=== PATIENT | male | born 1955 | race Two or more races ===

== ENCOUNTER → 2017-04-17 | Outpatient (CLI) | payer MEDICARE ==
--- NOTE | 2017-04-18 12:12 | XCELERA REPORT ---
[address] [address] Transthoracic Echocardiogram Report Name: MANAN IGLESIAS Age: 61 yrs Gender: Male : 1955 Patient Status: Outpatient Patient Location: Study Date: 04/17/2017 01:01 PM Height: 67 in Weight: 153 lb BSA: 1.8 m2 Procedure: A complete two-dimensional transthoracic echocardiogram was performed (2D, M-mode, spectral and color flow Doppler). The study was technically adequate with some images being suboptimal in quality. Reason For Study: CARDIOMYOPATHY Ordering Physician: TINY QUINTERO Performed By: Henrietta Khan Interpretation Summary The left ventricular ejection fraction is normal. There is borderline concentric left ventricular hypertrophy. LV diastolic function could not be adequately assessed. The left ventricle is grossly normal size. Wall motion cannot be accurately commented on, but no definite regional wall motion abnormalities noted. The right ventricle is mildly dilated. The right ventricular systolic function is normal. The right atrium is normal in size The left atrial size is normal. There is a trace amount of mitral regurgitation There is no mitral valve stenosis. There is no aortic valve stenosis No aortic regurgitation is present. There is a trace to mild amount of tricuspid regurgitation There is mild pulmonary hypertension by echo Right ventricular systolic pressure is estimated to be elevated at 40- 50mmHg. The aortic root is not well visualized but is probably normal size. The inferior vena cava appeared normal and decreased > 50% with respiration (RAP 5-10 mmHg) There is no pericardial effusion. MMode/2D Measurements & Calculations RVDd: 3.2 cm LVIDd: 4.8 cm FS: 32.8 % Ao root diam: 2.8 cm IVSd: 0.93 cm LVIDs: 3.2 cm EDV(Teich): 105.9 ml LVPWd: 0.95 cm ESV(Teich): 41.1 ml Ao root area: 6.1 cm2 EF(Teich): 61.2 % Doppler Measurements & Calculations MV E max bria: MV dec slope: Ao V2 max: LV V1 max P.9 cm/sec 122.0 cm/sec 3.2 mmHg MV A max bria: 405.1 cm/sec2 Ao max PG: LV V1 max: 52.5 cm/sec MV dec time: 5.9 mmHg 89.9 cm/sec MV E/A: 1.3 0.17 sec PA V2 max: TR max bria: 82.0 cm/sec 271.8 cm/sec PA max PG: TR max P.4 mmHg 2.7 mmHg Left Ventricle The left ventricle is grossly normal size. There is borderline concentric left ventricular hypertrophy. The left ventricular ejection fraction is normal. LV diastolic function could not be adequately assessed. Wall motion cannot be accurately commented on, but no definite regional wall motion abnormalities noted. Right Ventricle The right ventricle is mildly dilated. There is normal right ventricular wall thickness. The right ventricular systolic function is normal. Atria The right atrium is normal in size. The left atrial size is normal. Interarterial septum not well visualized and not well dopplered. Cannot comment on ASD/PFO presence. Mitral Valve The mitral valve is grossly normal. There is no mitral valve stenosis. There is a trace amount of mitral regurgitation. Aortic Valve The aortic valve is not well visualized secondary to technical limitations. There is no aortic valve stenosis. No aortic regurgitation is present. Tricuspid Valve The tricuspid valve is not well visualized, but is grossly normal. There is no tricuspid stenosis. There is a trace to mild amount of tricuspid regurgitation. There is mild pulmonary hypertension by echo. Right ventricular systolic pressure is estimated to be elevated at 40-50mmHg. Pulmonic Valve The pulmonic valve is not well visualized. Great Vessels The aortic root is not well visualized but is probably normal size. The inferior vena cava appeared normal and decreased > 50% with respiration (RAP 5-10 mmHg). Effusions There is no pericardial effusion. : TINY QUINTERO > Caryn Kelly
== END ==
LOC: SP 12:26
PROVIDERS: ATTEND Family Medicine Geriatric Medicine
DX: I10 Essential (primary) hypertension (principal); E10.59 Type 1 diabetes mellitus with other circulatory complications; F17.200 Nicotine dependence, unspecified, uncomplicated; I42.9 Cardiomyopathy, unspecified
CPT/HCPCS: 93306

== ENCOUNTER → 2017-07-23 | Outpatient (CLI) | payer MEDICARE ==
[2017-07-23 10:10] LABS: ABSOLUTE BASOPHILS # (AUTO) 0.1 10^3/uL (0.0-0.2); ABSOLUTE EOSINOPHILS # (AUTO) 0.3 10^3/uL (0.0-0.6); ABSOLUTE LYMPHOCYTES (AUTO) 2.3 10^3/uL (0.5-4.7); ABSOLUTE MONOCYTES (AUTO) 0.9 10^3/uL (0.1-1.4); ABSOLUTE NEUT (AUTO) 3.7 10^3/uL (1.7-8.2); BASOPHILS % (AUTO) 0.9 % (0-2); EOSINOPHILS % (AUTO) 3.6 % (0-6); HEMATOCRIT 41.3 % (37.9-51.0); LYMPHOCYTES % (AUTO) 31.7 % (13-45); MEAN CORPUSCULAR HEMOGLOBIN 32.4 pg (27.0-33.4); MEAN CORPUSCULAR HGB CONC 33.9 g/dL (32.0-36.0); MEAN CORPUSCULAR VOLUME 96 fl (80-97); MONOCYTES % (AUTO) 12.7 % (3-13); PLATELET COUNT 150 10^3/uL (150-450); RED BLOOD COUNT 4.32 10^6/uL (4.35-5.55); RED CELL DISTRIBUTION WIDTH 14.8 % (11.5-14.0); SEGMENTED NEUTROPHILS % (AUTO) 51.1 % (42-78); TOTAL CELLS COUNTED % (AUTO) 100 %; WHITE BLOOD COUNT 7.2 10^3/uL (4.0-10.5)
[2017-07-23 10:46] LABS: ALANINE AMINOTRANSFERASE 27 U/L (21-72); ALBUMIN 3.9 g/dL (3.5-5.0); ALKALINE PHOSPHATASE 58 U/L (38-126); ANION GAP 7 (5-19); ASPARTATE AMINO TRANSFERASE 27 U/L (17-59); BILIRUBIN,DIRECT 0.4 mg/dL (0.0-0.4); BILIRUBIN,TOTAL 0.4 mg/dL (0.2-1.3); BLOOD UREA NITROGEN 11 mg/dL (7-20); CALCIUM 9.2 mg/dL (8.4-10.2); CARBON DIOXIDE 33 mmol/L (22-30); CHLORIDE 104 mmol/L (98-107); CHOLESTEROL 137.97 mg/dL (0-200); GLUCOSE 93 mg/dL (75-110); POTASSIUM 4.3 mmol/L (3.6-5.0); SODIUM 143.9 mmol/L (137-145); TOTAL PROTEIN 6.6 g/dL (6.3-8.2); TRIGLYCERIDES 72 mg/dL (<150)
[2017-07-23 10:58] LABS: DIRECT LDL 61 mg/dL (<100)
== END ==
LOC: LAB 09:06
PROVIDERS: ATTEND Family Medicine Geriatric Medicine
DX: E78.5 Hyperlipidemia, unspecified (principal); I10 Essential (primary) hypertension; N40.0 Benign prostatic hyperplasia without lower urinary tract symptoms; Z79.899 Other long term (current) drug therapy
CPT/HCPCS: 36415; 80053; 80061; 84153; 84443; 85025

== ENCOUNTER 2018-02-13 06:05 | Emergency (ER) | payer MEDICARE ==
[2018-02-13] MEDS ORDERED: SILVER NITRATE APPLICATOR 1 APPLIC STICK..EA. 10/PACKAGE TOP ONE (06:55)
--- NOTE | 2018-02-13 07:48 | ER Document Report ---
ED General - General Chief Complaint: Nose Bleed Stated Complaint: NOSE BLEED Time Seen by Provider: 02/13/18 06:29 Notes: Patient is a 62-year-old male that presents to the emergency department for chief complaint of nosebleed. Patient states that last night around 8:30 PM, he had bleeding from his left nostril, he held pressure, and it did stop at that time, he woke up this morning again though and around 6 AM he started bleeding from his left nostril again, he placed some tissues, and it would not stop at home, is felt drainage down the back of his throat, so he decided to come to the emergency department. He does take aspirin, but no other blood thinners. No injuries to his nose. Denies having any lightheadedness, dizziness, headache, chest pain, recent fevers, chills or night sweats. Past Medical History: COPD, hypertension, GERD Past Surgical History: Total knee arthroplasty Social History: Denies tobacco, alcohol or drug use. Family History: Reviewed and noncontributory for presenting illness Allergies: Reviewed, see documented allergy list. REVIEW OF SYSTEMS: Other than noted above, the 12 point review of systems was reviewed with the patient and were negative, all pertinent findings are included in the HPI. PHYSICAL EXAMINATION: Vital signs reviewed, nursing noted reviewed. GENERAL: Well-appearing, well-nourished and in no acute distress. HEAD: Atraumatic, normocephalic. EYES: Eyes appear normal, sclera anicteric, conjunctiva are normal. ENT: Moist mucous membranes. Dried blood noted both nares, on the left nasal septum, there is an exposed vessel, not actively bleeding, the posterior pharynx appears unremarkable, no active bleeding at this time, after nasal packing. NECK: Normal range of motion, supple without lymphadenopathy LUNGS: Breath sounds clear to auscultation bilaterally and equal. No wheezes rales or rhonchi. HEART: Regular rate and rhythm without murmurs EXTREMITIES: Nontender, good range of motion, no pitting or edema. NEUROLOGICAL: No focal neurological deficits. Moves all extremities spontaneously Motor and sensory grossly intact on exam. PSYCH: Normal mood, normal affect. SKIN: Warm, Dry, normal turgor, no rashes or lesions noted on exposed skin TRAVEL OUTSIDE OF THE [place] IN LAST 30 DAYS: No - Related Data Allergies/Adverse Reactions: No Known Drug Allergies Allergy (Verified 02/13/18 06:06) Past Medical History - Social History Smoking Status: Current Every Day Smoker Chew tobacco use (# tins/day): No Frequency of alcohol use: None Drug Abuse: None Family History: Reviewed & Not Pertinent Patient has suicidal ideation: No Patient has homicidal ideation: No - Past Medical History Cardiac Medical History: Reports: Hx Hypertension Pulmonary Medical History: Reports: Hx COPD Renal/ Medical History: Denies: Hx Peritoneal Dialysis Past Surgical History: Reports: Hx Orthopedic Surgery - R knee replacement Physical Exam - Vital signs Vitals: Temp Pulse Resp BP Pulse Ox 98.1 F 77 20 141/78 H 98 02/13/18 06:09 02/13/18 06:09 02/13/18 06:09 02/13/18 06:09 02/13/18 06:09 Course - Re-evaluation Re-evalutation: Patient seen and examined, vital signs reviewed, packing was removed from the patient's nose, had a blow out his nose, he did not have any further bleeding, he did have an exposed vessel on his left nasal septum however, and I felt that this would likely rebleed if the patient was just discharged home, therefore using silver nitrate cautery, this was applied to the left nasal septum, with good hemostasis, no further or active bleeding. Patient was feeling well, he was monitored, no active bleeding or further bleeding. He is advised to use Vaseline or saline gel, gently, to help moisturize his nose. Patient was agreeable to this plan of care and discharged home. - Vital Signs Vital signs: Temp Pulse Resp BP Pulse Ox 98.3 F 67 18 133/79 H 96 02/13/18 08:01 02/13/18 08:01 02/13/18 08:01 02/13/18 08:01 02/13/18 08:01 Discharge - Discharge Clinical Impression: Epistaxis Condition: Stable Disposition: HOME, SELF-CARE Instructions: Nosebleed Instructions ([facility]) Additional Instructions: Please follow-up with your primary care physician, or ear nose and throat doctor, keep your nose moist, you could use Vaseline, or with Forrest gel, that can be purchased [id number]. You should do this at least twice a day. Apply it to the outside portion of your nostril, and then gently pinch your Forms: Return to Work Referrals: TINY QUINTERO MD [Primary Care Provider] - Follow up in 3-5 days
[2018-02-13 08:03] VITALS: BP 133/79
== END 2018-02-13 08:02 | disposition home or self-care (01) ==
LOC: ER 06:05
DX: R04.0 Epistaxis (principal); F17.200 Nicotine dependence, unspecified, uncomplicated; J44.9 Chronic obstructive pulmonary disease, unspecified; I10 Essential (primary) hypertension; K21.9 Gastro-esophageal reflux disease without esophagitis; Z96.651 Presence of right artificial knee joint
CPT/HCPCS: 99283

== ENCOUNTER → 2018-06-18 | Outpatient (CLI) | payer MEDICARE ==
[2018-06-18 09:47] LABS: ABSOLUTE BASOPHILS # (AUTO) 0.1 10^3/uL (0.0-0.2); ABSOLUTE EOSINOPHILS # (AUTO) 0.4 10^3/uL (0.0-0.6); ABSOLUTE LYMPHOCYTES (AUTO) 2.1 10^3/uL (0.5-4.7); ABSOLUTE MONOCYTES (AUTO) 1.2 10^3/uL (0.1-1.4); ABSOLUTE NEUT (AUTO) 6.7 10^3/uL (1.7-8.2); BASOPHILS % (AUTO) 0.8 % (0-2); EOSINOPHILS % (AUTO) 3.7 % (0-6); HEMATOCRIT 42.7 % (37.9-51.0); HEMOGLOBIN 14.2 g/dL (13.5-17.0); LYMPHOCYTES % (AUTO) 19.8 % (13-45); MEAN CORPUSCULAR HEMOGLOBIN 31.6 pg (27.0-33.4); MEAN CORPUSCULAR HGB CONC 33.2 g/dL (32.0-36.0); MEAN CORPUSCULAR VOLUME 95 fl (80-97); MONOCYTES % (AUTO) 11.8 % (3-13); PLATELET COUNT 200 10^3/uL (150-450); SEGMENTED NEUTROPHILS % (AUTO) 63.9 % (42-78); TOTAL CELLS COUNTED % (AUTO) 100 %; WHITE BLOOD COUNT 10.5 10^3/uL (4.0-10.5)
[2018-06-18 10:36] LABS: ALANINE AMINOTRANSFERASE 29 U/L (21-72); ANION GAP 8 (5-19); BLOOD UREA NITROGEN 14 mg/dL (7-20); CALCIUM 8.9 mg/dL (8.4-10.2); CARBON DIOXIDE 33 mmol/L (22-30); CHLORIDE 102 mmol/L (98-107); CHOLESTEROL 112.49 mg/dL (0-200); GLUCOSE 92 mg/dL (75-110); POTASSIUM 4.6 mmol/L (3.6-5.0); SODIUM 143.4 mmol/L (137-145); TRIGLYCERIDES 71 mg/dL (<150)
[2018-06-18 10:47] LABS: DIRECT LDL 62 mg/dL (<100)
== END ==
LOC: LAB 09:08
PROVIDERS: ATTEND Family Medicine Geriatric Medicine
DX: N40.1 Benign prostatic hyperplasia with lower urinary tract symptoms (principal); E78.5 Hyperlipidemia, unspecified; I10 Essential (primary) hypertension; Z79.899 Other long term (current) drug therapy
CPT/HCPCS: 36415; 80048; 80061; 84153; 84443; 84460; 85025

== ENCOUNTER → 2019-01-12 | Outpatient (CLI) | payer MEDICARE ==
--- NOTE | 2019-01-12 11:18 | RADIOLOGY REPORT (SQ) ---
EXAM DESCRIPTION: CHEST 2 VIEWS COMPLETED DATE/TIME: 01/12/2019 10:56 am REASON FOR STUDY: J20.9 ACUTE BRONCHITIS, UNSPECIFIED, J44.9 CHRONIC OBSTRUCTIVE PULMONARY DI COMPARISON: None. EXAM PARAMETERS: NUMBER OF VIEWS: two views TECHNIQUE: Digital Frontal and Lateral radiographic views of the chest acquired. RADIATION DOSE: NA LIMITATIONS: none FINDINGS: LUNGS AND PLEURA: Ill-defined opacities within the right mid lung. Additional 8 mm jennifer te opacity within the left mid lung. Blunting of the bilateral costophrenic angles, possibly small e ffusions versus pleural thickening. Increased AP diameter with emphysematous interstitial changes. No pneumothorax. MEDIASTINUM AND HILAR STRUCTURES: No masses or contour abnormalities. HEART AND VASCULAR STRUCTURES: Heart normal size. No evidence for failure. BONES: No acute findings. HARDWARE: Surgical clips overlie right lung base. OTHER: No other significant finding. IMPRESSION: 1. Patchy opacities within the right mid lung, possibly infectious/inflammatory. Trace effusions versus pleural thickening. 2. 8 mm nodular opacity in the left mid lung possibly also infectious/ inflammatory although underlyi ng lung nodule is not excluded. Recommend follow-up to resolution or nonemergent chest CT for furthe r characterization. 3. Emphysematous change. TECHNICAL DOCUMENTATION: JOB ID: [id number] [employer]- All Rights Reserved Reading location - IP/workstation name: [email or web address]
== END ==
LOC: RAD 10:33
PROVIDERS: ATTEND Family Medicine Geriatric Medicine
DX: J20.9 Acute bronchitis, unspecified (principal); J44.0 Chronic obstructive pulmonary disease with (acute) lower respiratory infection
CPT/HCPCS: 71046

== ENCOUNTER → 2019-02-13 | Outpatient (CLI) | payer MEDICARE ==
--- NOTE | 2019-02-13 09:53 | RADIOLOGY REPORT (SQ) ---
EXAM DESCRIPTION: CT CHEST WITHOUT COMPLETED DATE/TIME: 02/13/2019 7:21 am REASON FOR STUDY: PULMONARY NODULE (R91.1), PNEUMONIA (J18.9) J18.9 PNEUMONIA, UNSPECIFIED ORGANISM R91.1 SOLITARY PULMONARY NODULE COMPARISON: None. TECHNIQUE: CT scan performed of the chest without intravenous contrast. Images reviewed with lung, soft tissue and bone windows. Reconstructed coronal and sagittal MPR images reviewed. All images st ored on PACS. All CT scanners at this facility use dose modulation, iterative reconstruction, and/or weight based d osing when appropriate to reduce radiation dose to as low as reasonably achievable (ALARA). [facility]: Dose Right [facility]: CareDose [facility]: Dose Right [facility]: Teradose 4D [facility]: [employer] RADIATION DOSE: CT Rad equipment meets quality standard of care and radiation dose reduction techniq ues were employed. CTDIvol: 4.8 mGy. DLP: 199 mGy-cm. mGy. LIMITATIONS: No technical limitations. FINDINGS: LUNGS AND PLEURA: Severe upper lobe predominant panacinar are and paraseptal emphysema. T here are multiple bilateral nodular opacities. For reference the there is a left lower lobe spiculat ed nodule measuring 8.6 mm (series 4, image 64). There are multiple irregular areas of nodular conso lidation within the right lung. For reference there is a nodular area of consolidation within the ri ght lower lobe measuring approximately 16 mm (series 4, image 61). There is an additional area of ir regular pleural thickening and nodularity along the minor fissure without discrete nodule identified (series 4, image 51). There is a small 6 mm nodular opacity abutting the right upper lobe airway (se jose a 4, image 45). No significant pleural effusion. No pneumothorax. No discrete airspace disease. HILAR AND MEDIASTINAL STRUCTURES: No identified masses or abnormal nodes. No obvious aneurysm. HEART AND VASCULAR STRUCTURES: No aneurysm. No pericardial effusion. UPPER ABDOMEN: No significant findings. Limited exam. THYROID AND OTHER SOFT TISSUES: No masses. No adenopathy. BONES: No acute bony abnormality. No suspicious lytic or blastic osseous lesions. HARDWARE: 2 punctate metallic densities along the right posterior hemithorax between the 10th and 11t h ribs, etiology uncertain. OTHER: No other significant findings. IMPRESSION: 1. Multiple bilateral nodular opacities as above. Most concerning nodules are a left l ower lobe spiculated nodule measuring 8.6 mm and a right lower lobe 16 mm irregular nodule. Follow-u p recommendations as below. 2. Severe emphysema with additional areas of parenchymal change, likely scarring. 3. No lymphadenopathy. No other evidence of acute intrathoracic process. COMMENT: F[place]ISCHNER CRITERIA FOR FOLLOW-UP OF PULMONARY NODULES Incidentally detected new nodules in persons 35 or older. HIGH RISK: History of smoking or other known risk factors. >8 mm single solid nodule: LOW and HIGH RISK: consider CT, PET/CT or biopsy at 3 mo. TECHNICAL DOCUMENTATION: JOB ID: [id number] Quality ID # [id number]: Final reports with documentation of one or more dose reduction techniques (e.g., Au tomated exposure control, adjustment of the mA and/or kV according to patient size, use of iterative reconstruction technique) 2010 [employer]- All Rights Reserved Reading location - IP/workstation name: [email or web address]
== END ==
LOC: RAD 06:47
PROVIDERS: ATTEND Family Medicine Geriatric Medicine
DX: J18.9 Pneumonia, unspecified organism (principal); R91.1 Solitary pulmonary nodule; J43.9 Emphysema, unspecified
CPT/HCPCS: 71250

== ENCOUNTER → 2019-02-24 | Outpatient (CLI) | payer MEDICARE ==
--- NOTE | 2019-02-25 13:44 | RADIOLOGY REPORT (SQ) ---
EXAM DESCRIPTION: PET CT SKULL/THIGH COMPLETED DATE/TIME: 02/24/2019 8:05 pm REASON FOR STUDY: D49.1 NEOPLASM OF UNSPECIFIED BEHAVIOR OF RESPIRATORY SYSTEM D49.1 NEOPLASM OF UN SPECIFIED BEHAVIOR OF RESPIRATORY SYSTEM COMPARISON: CT of the chest without contrast from 02/13/2019. RADIONUCLIDE AND DOSE: 7.98 mCi F18 FDG The route of agent administration: Intravenous FASTING BLOOD SUGAR: 88 mg/dl CONTRAST TYPE AND DOSE: No CT contrast given. TECHNIQUE: Blood glucose level was verified. Above dose of FDG was injected intravenously. 2-D seg mented attenuation correction images were obtained from the base of the skull to the midthighs. Nonc ontrast CT images were obtained for attenuation correction and fusion with emission images. CT image s were performed without oral or intravenous contrast and are not sensitive for parenchymal lesions. A series of overlapping emission PET images were obtained. Images reviewed and manipulated at [facility] work station by the radiologist. Images stored on PACS. LIMITATIONS: None. FINDINGS: HEAD AND NECK: No areas of abnormal metabolic activity in the soft tissues of the head and neck. CHEST: There is moderate to severe centrilobular and paraseptal emphysema. The maximum SUV of the 15 x 9 mm nodular opacity with spiculated margins in the superior segment of t he right lower lobe (image 79 of series 3) is 2.4; the maximum SUV of the 9 mm nodular opacity in the superior segment of the left lower lobe (image 79 of series 3) is 2; and maximum SUV of the 6 mm nod ular opacity in the right upper lobe (image 68 of series 3) the is 1.3. There is a new ill-defined ground-glass nodular opacity in the posterior aspect of the left lower lob e (image 91 of series 3) that demonstrates minimal FDG uptake with a maximum SUV of 1.9. There is no hypermetabolic thoracic adenopathy. ABDOMEN AND PELVIS: The liver demonstrates heterogeneous non focal FDG uptake with an average SUV of 2.1. There is expected physiologic uptake throughout the gastrointestinal and genitourinary tracts. No areas of abnormal metabolic activity are identified in the abdomen or pelvis PROXIMAL LOWER EXTREMITIES: No areas of abnormal metabolic activity in the soft tissues of the lower extremities. BONES: No areas of abnormal metabolic activity in the imaged axial and appendicular skeleton. ADDITIONAL CT FINDINGS: Mild bilateral gynecomastia. The heart is enlarged. There is no pericardial effusion. There is a linear hyperdense line that tracks along the posteromedial pleural surface of the right hemithorax down to hilum (images 09/12/1950 82 of series 3) - correlate for prior wedge resec tion. There is no enlarged mediastinal adenopathy. Evaluation of the jon for adenopathy is limited due to the absence of intravenous contrast. There is no abnormality of the liver, spleen, pancreas, a drenal glands or kidneys that is apparent on a limited unenhanced CT. The gallbladder is present. T he abdominal aorta is normal in caliber. There is no retroperitoneal adenopathy, hemorrhage or mass. There is colonic diverticulosis without diverticulitis and a fat containing indirect left inguinal hernia. OTHER: No other findings. IMPRESSION: 1. The nodular opacities described on the CT from 03/05/2019 demonstrate minimal FDG upta ke with maximum SUVs that range from 1.3 to 2.4. The intensity of the FDG uptake is greater than shmuel t of the mediastinal blood pool and less than that of the liver parenchyma. These nodules are indete rminate on PET and continued short-term CT follow-up is recommended. 2. New ill-defined nodular ground-glass opacity in the posterior aspect of the left lower lobe (imag e 91 of series 3) that demonstrates minimal FDG uptake. The opacity could be infectious or inflammat ory in etiology. TECHNICAL DOCUMENTATION: JOB ID: [id number] [employer]- All Rights Reserved Reading location - IP/workstation name: [email or web address]
== END ==
LOC: RAD 10:38
PROVIDERS: ATTEND Family Medicine Geriatric Medicine
DX: R91.8 Other nonspecific abnormal finding of lung field (principal); J43.2 Centrilobular emphysema
CPT/HCPCS: 78815; A9552

== ENCOUNTER 2019-05-24 10:48 | Emergency (ER) | payer MEDICARE ==
[2019-05-24 11:30] LABS: ABSOLUTE BASOPHILS # (AUTO) 0.1 10^3/uL (0.0-0.2); ABSOLUTE EOSINOPHILS # (AUTO) 0.2 10^3/uL (0.0-0.6); ABSOLUTE MONOCYTES (AUTO) 1.2 10^3/uL (0.1-1.4); ABSOLUTE NEUT (AUTO) 9.4 10^3/uL (1.7-8.2); BASOPHILS % (AUTO) 0.5 % (0-2); EOSINOPHILS % (AUTO) 1.6 % (0-6); HEMATOCRIT 38.7 % (37.9-51.0); HEMOGLOBIN 13.2 g/dL (13.5-17.0); LYMPHOCYTES % (AUTO) 15.4 % (13-45); MEAN CORPUSCULAR HEMOGLOBIN 32.1 pg (27.0-33.4); MEAN CORPUSCULAR HGB CONC 34.1 g/dL (32.0-36.0); MEAN CORPUSCULAR VOLUME 94 fl (80-97); MONOCYTES % (AUTO) 9.4 % (3-13); PLATELET COUNT 462 10^3/uL (150-450); RED BLOOD COUNT 4.11 10^6/uL (4.35-5.55); RED CELL DISTRIBUTION WIDTH 15.6 % (11.5-14.0); SEGMENTED NEUTROPHILS % (AUTO) 73.1 % (42-78); TOTAL CELLS COUNTED % (AUTO) 100 %; WHITE BLOOD COUNT 12.8 10^3/uL (4.0-10.5)
[2019-05-24 11:36] LABS: APPEARANCE,URINE SLIGHTLY-CLOUDY; BILIRUBIN,URINE NEGATIVE (NEGATIVE); COLOR,URINE AMBER; GLUCOSE, URINE NEGATIVE (NEGATIVE); KETONES,URINE NEGATIVE (NEGATIVE); LEUKOCYTE ESTERASE,URINE NEGATIVE (NEGATIVE); NITRITE,URINE NEGATIVE (NEGATIVE); PROTEIN,URINE NEGATIVE (NEGATIVE); URINE SPECIFIC GRAVITY 1.016; UROBILINOGEN,URINE NEGATIVE mg/dL (<2.0)
[2019-05-24 11:42] LABS: ALBUMIN 3.7 g/dL (3.5-5.0); ALKALINE PHOSPHATASE 89 U/L (38-126); ANION GAP 5 (5-19); ASPARTATE AMINO TRANSFERASE 36 U/L (17-59); BILIRUBIN,DIRECT 0.3 mg/dL (0.0-0.4); BILIRUBIN,TOTAL 0.3 mg/dL (0.2-1.3); BLOOD UREA NITROGEN 16 mg/dL (7-20); CALCIUM 8.8 mg/dL (8.4-10.2); CARBON DIOXIDE 32 mmol/L (22-30); CHLORIDE 99 mmol/L (98-107); GLUCOSE 109 mg/dL (75-110); POTASSIUM 4.6 mmol/L (3.6-5.0); TOTAL PROTEIN 6.9 g/dL (6.3-8.2)
[2019-05-24] MEDS ORDERED: FENTANYL CITRATE INJ/PF 100 MCG/2 ML AMPUL IV ONE ×2 (12:00→15:09)
--- NOTE | 2019-05-24 12:03 | ER Document Report ---
ED GI/ - General Chief Complaint: Abdominal Pain Stated Complaint: ABDOMINAL PAIN Time Seen by Provider: 05/24/19 11:30 Primary Care Provider: TINY QUINTERO MD [COMMUNITY BASED STAFF] - Follow up tomorrow MANAN HERMAN MD [Primary Care Provider] - Follow up as needed Notes: Patient states that he coughed around 2:00 this morning and had a sudden sharp abdominal pain to the right lower quadrant. Patient complains of persistent sharp pain to the right lower quadrant. Patient denies any fever, nausea vomiting or diarrhea. Patient denies any urinary symptoms. Patient has noticed some bruising to the umbilical area. Patient denies any other abnormal bleeding or bruising. Patient states that he has been self quarantining at home for the past 2-1/2 weeks due to having a fever and cough 2-1/2 weeks ago. Patient denies any fever since then. TRAVEL OUTSIDE OF THE [place] IN LAST 30 DAYS: No - HPI Patient complains to provider of: Abdominal pain. No: Vomiting Onset: This morning Timing/Duration: Persistent, Worse Quality of pain: Sharp Pain Level: 4 Location: RLQ Associated symptoms: denies: Constipation, Diarrhea, Dysuria, Fever, Loss of appetite, Nausea, Urinary hesitancy, Urinary frequency, Urinary retention, Urinary urgency, Vomiting Exacerbated by: Movement Relieved by: Denies Similar symptoms previously: No Recently seen / treated by doctor: No - Related Data Allergies/Adverse Reactions: No Known Drug Allergies Allergy (Verified 02/13/18 06:06) Past Medical History - General Information source: Patient - Social History Smoking Status: Former Smoker Frequency of alcohol use: None Drug Abuse: None Family History: Reviewed & Not Pertinent Patient has suicidal ideation: No Patient has homicidal ideation: No - Past Medical History Cardiac Medical History: Reports: Hx Hypercholesterolemia, Hx Hypertension Pulmonary Medical History: Reports: Hx COPD Renal/ Medical History: Denies: Hx Peritoneal Dialysis Past Surgical History: Reports: Hx Orthopedic Surgery - R knee replacement Review of Systems - Review of Systems Constitutional: Recent illness - Recent cough. denies: Fever EENT: No symptoms reported Cardiovascular: No symptoms reported. denies: Chest pain Respiratory: Cough. denies: Short of breath Gastrointestinal: Abdominal pain. denies: Diarrhea, Nausea, Vomiting Genitourinary: No symptoms reported. denies: Flank pain, Hematuria Male Genitourinary: No symptoms reported Musculoskeletal: No symptoms reported. denies: Back pain Skin: Change in color - Bruising to umbilical area Hematologic/Lymphatic: No symptoms reported Neurological/Psychological: No symptoms reported. denies: Weakness, Headaches Physical Exam - Vital signs Vitals: Temp Pulse Resp BP Pulse Ox 97.5 F 74 20 124/86 H 98 05/24/19 10:55 05/24/19 10:55 05/24/19 10:55 05/24/19 10:55 05/24/19 10:55 - General General appearance: Appears well, Alert In distress: Mild - HEENT Head: Normocephalic, Atraumatic Eyes: Normal Conjunctiva: Normal Nasal: Normal Mouth/Lips: Normal Neck: Normal, Supple. No: Lymphadenopathy - Respiratory Respiratory status: No respiratory distress Chest status: Nontender Breath sounds: Normal. No: Rales, Rhonchi, Stridor, Wheezing Chest palpation: Normal - Cardiovascular Rhythm: Regular Heart sounds: S1 appreciated, S2 appreciated - Abdominal Inspection: Other - Ecchymosis to umbilical area Distension: No distension Bowel sounds: Normal Tenderness: Tender - Right lower quadrant tenderness, Guarding Organomegaly: Other - Fullness appreciated to right lower quadrant - Back Back: Normal, Nontender. No: CVA tenderness - Extremities General upper extremity: Normal inspection, Normal ROM General lower extremity: Normal inspection, Normal ROM - Neurological Neuro grossly intact: Yes Cognition: Normal Judy Coma Scale Eye Opening: Spontaneous [place] Coma Scale Verbal: Oriented Judy Coma Scale Motor: Obeys Commands Judy Coma Scale Total: 15 - Psychological Associated symptoms: Normal affect, Normal mood - Skin Skin Temperature: Warm Skin Moisture: Dry Skin Color: Ecchymosis - Umbilical Course - Re-evaluation Re-evalutation: 05/24/19 16:[address] Sims regarding patient presentation and CT report findings. Recommends consultation with hospitalist for admission. Spoke with who advises consulting with surgeon regarding patient's presentation. Spoke with Dr. Mahajan who recommends repeating a CBC after 4 hours from the first draw and then a applying an abdominal binder. States that if CBC is st able patient can likely be discharged home. Spoke with Dr. Sims regarding this plan of care and Dr. Sims states that that is a reasonable plan if patient's pain can be managed, vital signs and hemoglobin are stable. 05/24/19 17:13 Patient with stable H&H and vital signs. Patient states that he does feel that he can manage his pain symptoms at home. Will plan for discharge at this time. Good return precautions discussed with patient. - Vital Signs Vital signs: Temp Pulse Resp BP Pulse Ox 97.8 F 74 14 125/71 96 05/24/19 17:50 05/24/19 17:50 05/24/19 17:50 05/24/19 17:50 05/24/19 17:50 - Laboratory Result Diagrams: 05/24/19 16:41 05/24/19 11:00 Laboratory results interpreted by me: 05/24/19 05/24/19 05/24/19 11:00 11:00 11:00 WBC 12.8 H RBC 4.11 L Hgb 13.2 L Hct RDW 15.6 H Plt Count 462 H Absolute Neuts (auto) 9.4 H APTT 36.0 H Sodium 135.8 L Carbon Dioxide 32 H Urine Ascorbic Acid 05/24/19 05/24/19 11:20 16:41 WBC 11.9 H RBC 3.97 L Hgb 12.6 L Hct 37.4 L RDW 15.5 H Plt Count Absolute Neuts (auto) 8.4 H APTT Sodium Carbon Dioxide Urine Ascorbic Acid 20 H 05/24/19 17:13 Labs- Entire Visit 05/24/19 05/24/19 05/24/19 11:00 11:00 11:00 WBC 12.8 H RBC 4.11 L Hgb 13.2 L Hct 38.7 MCV 94 MCH 32.1 MCHC 34.1 RDW 15.6 H Plt Count 462 H Lymph % (Auto) 15.4 [place] % (Auto) 9.4 Eos % (Auto) 1.6 Baso % (Auto) 0.5 Absolute Neuts (auto) 9.4 H Absolute Lymphs (auto) 2.0 Absolute Monos (auto) 1.2 Absolute Eos (auto) 0.2 Absolute Basos (auto) 0.1 Seg Neutrophils % 73.1 PT 13.3 INR 1.01 APTT 36.0 H Sodium 135.8 L Potassium 4.6 Chloride 99 Carbon Dioxide 32 H Anion Gap 5 BUN 16 Creatinine 1.11 Est GFR ( Amer) > 60 Est GFR (MDRD) Non-Af > 60 Glucose 109 Calcium 8.8 Total Bilirubin 0.3 Direct Bilirubin 0.3 Neonat Total Bilirubin Not Reportable Neonat Direct Bilirubin Not Reportable Neonat Indirect Bili Not Reportable AST 36 ALT 34 Alkaline Phosphatase 89 Total Protein 6.9 Albumin 3.7 Lipase 49.9 Urine Color Urine Appearance Urine pH Ur Specific [place] Urine Protein Urine Glucose (UA) Urine Ketones Urine Blood Urine Nitrite Urine Bilirubin Urine Urobilinogen Ur Leukocyte Esterase Urine WBC (Auto) Urine Mucus (Auto) Urine Ascorbic Acid 05/24/19 05/24/19 11:20 16:41 WBC 11.9 H RBC 3.97 L Hgb 12.6 L Hct 37.4 L MCV 94 MCH 31.8 MCHC 33.7 RDW 15.5 H Plt Count 441 Lymph % (Auto) 17.7 [place] % (Auto) 9.0 Eos % (Auto) 1.4 Baso % (Auto) 0.9 Absolute Neuts (auto) 8.4 H Absolute Lymphs (auto) 2.1 Absolute Monos (auto) 1.1 Absolute Eos (auto) 0.2 Absolute Basos (auto) 0.1 Seg Neutrophils % 71.0 PT INR APTT Sodium Potassium Chloride Carbon Dioxide Anion Gap BUN Creatinine Est GFR ( Amer) Est GFR (MDRD) Non-Af Glucose Calcium Total Bilirubin Direct Bilirubin Neonat Total Bilirubin Neonat Direct Bilirubin Neonat Indirect Bili AST ALT Alkaline Phosphatase Total Protein Albumin Lipase Urine Color JAYASHREE Urine Appearance SLIGHTLY-CLOUDY Urine pH 5.0 Ur Specific [place] 1.016 Urine Protein NEGATIVE Urine Glucose (UA) NEGATIVE Urine Ketones NEGATIVE Urine Blood NEGATIVE Urine Nitrite NEGATIVE Urine Bilirubin NEGATIVE Urine Urobilinogen NEGATIVE Ur Leukocyte Esterase NEGATIVE Urine WBC (Auto) 1 Urine Mucus (Auto) FEW Urine Ascorbic Acid 20 H - Diagnostic Test Radiology reviewed: Reports reviewed Discharge - Discharge Clinical Impression: Abdominal wall hematoma Qualifiers: Encounter type: initial encounter Qualified Code(s): S30.1XXA - Contusion of abdominal wall, initial encounter Condition: Stable Disposition: HOME, SELF-CARE Instructions: Hematoma ([facility]), Oral Narcotic Medication ([facility]) Additional Instructions: Return immediately for any new or worsening symptoms: Increased abdominal pain, fever, vomiting, lightheadedness, dizziness, any other abnormal bleeding or bruising or any concerning new symptoms Followup with your primary care provider, call tomorrow to make a followup appointment Stop your aspirin and stop taking the meloxicam until you have rechecked with your doctor. Prescriptions: Hydrocodone/Acetaminophen [[place] 5-325 mg Tablet] 1 tab PO Q6 PRN #12 tablet PRN Reason: Referrals: MANAN HERMAN MD [Primary Care Provider] - Follow up as needed TINY QUINTERO MD [COMMUNITY BASED STAFF] - Follow up tomorrow
[2019-05-24 12:10] LABS: INTERNATIONAL RATION (INR) 1.01; PROTHROMBIN TIME 13.3 SEC (11.4-15.4)
--- NOTE | 2019-05-24 12:53 | RADIOLOGY REPORT (SQ) ---
EXAM DESCRIPTION: CHEST SINGLE VIEW IMAGES COMPLETED DATE/TIME: 05/24/2019 12:42 pm REASON FOR STUDY: cough COMPARISON: 01/12/2019 EXAM PARAMETERS: NUMBER OF VIEWS: One view. TECHNIQUE: Single frontal radiographic view of the chest acquired. RADIATION DOSE: NA LIMITATIONS: None. FINDINGS: LUNGS AND PLEURA: New left upper lobe opacity. Right lung is clear. Hyperinflation. MEDIASTINUM AND HILAR STRUCTURES: No masses. Contour normal. HEART AND VASCULAR STRUCTURES: Heart normal in size. Normal vasculature. BONES: No acute findings. HARDWARE: None in the chest. OTHER: No other significant finding. IMPRESSION: New left upper lobe opacity. TECHNICAL DOCUMENTATION: JOB ID: [id number] 2010 [employer]- All Rights Reserved Reading location - IP/workstation name: [email or web address]
--- NOTE | 2019-05-24 15:11 | RADIOLOGY REPORT (SQ) ---
EXAM DESCRIPTION: CT ABD/PELVIS WITH IV ORAL IMAGES COMPLETED DATE/TIME: 05/24/2019 2:56 pm REASON FOR STUDY: RLQ pain, umbilical ecchymosis COMPARISON: None. TECHNIQUE: CT scan of the abdomen and pelvis performed using helical scanning technique with dynamic intravenous contrast injection. With oral contrast. Images reviewed with lung, soft tissue, and bon e windows. Reconstructed coronal and sagittal MPR images reviewed. Delayed images for evaluation of t he urinary system also acquired. All images stored on PACS. All CT scanners at this facility use dose modulation, iterative reconstruction, and/or weight based d osing when appropriate to reduce radiation dose to as low as reasonably achievable (ALARA). [facility]: Dose Right [facility]: CareDose [facility]: Dose Right [facility]: Teradose 4D [facility]: ExpertFile CONTRAST TYPE AND DOSE: contrast/concentration: Isovue 350.00 mg/ml; Total Contrast Delivered: 83.0 ml; Total Saline Delivered: 69.0 ml RENAL FUNCTION: GFR > 60. RADIATION DOSE: CT Rad equipment meets quality standard of care and radiation dose reduction techniq ues were employed. CTDIvol: 5.9 - 7.9 mGy. DLP: 728 mGy-cm.. LIMITATIONS: None. FINDINGS: LOWER CHEST: No significant findings. No nodules or infiltrates. LIVER: Normal size. No masses. No dilated ducts. SPLEEN: Normal size. No focal lesions. PANCREAS: No masses. No significant calcifications. No adjacent inflammation or peripancreatic fluid collections. Pancreatic duct not dilated. GALLBLADDER: No identified stones by CT criteria. No inflammatory changes to suggest cholecystitis. ADRENAL GLANDS: No significant masses or asymmetry. RIGHT KIDNEY AND URETER: No solid masses. No significant calcifications. No hydronephrosis or hyd roureter. LEFT KIDNEY AND URETER: No solid masses. No significant calcifications. No hydronephrosis or hydr oureter. AORTA AND VESSELS: No aneurysm. No dissection. Renal arteries, SMA, celiac without stenosis. RETROPERITONEUM: No retroperitoneal adenopathy, hemorrhage or masses. BOWEL AND PERITONEAL CAVITY: No masses or inflammatory changes. No free fluid or peritoneal masses. APPENDIX: Normal. PELVIS: No mass. No free fluid. Normal bladder. ABDOMINAL WALL: Left inguinal hernia contains fat. There is a 8.2 x 4.8 x 12 cm mass in the right ab dominal rectus. Most likely hematoma. BONES: No significant or acute findings. OTHER: No other significant finding. IMPRESSION: Large mass in the right anterior abdominal wall musculature. Likely hematoma. TECHNICAL DOCUMENTATION: JOB ID: [id number] Quality ID # [id number]: Final reports with documentation of one or more dose reduction techniques (e.g., Au tomated exposure control, adjustment of the mA and/or kV according to patient size, use of iterative reconstruction technique) 2010 [employer]- All Rights Reserved Reading location - IP/workstation name: [email or web address]
[2019-05-24 16:53] LABS: ABSOLUTE BASOPHILS # (AUTO) 0.1 10^3/uL (0.0-0.2); ABSOLUTE EOSINOPHILS # (AUTO) 0.2 10^3/uL (0.0-0.6); ABSOLUTE LYMPHOCYTES (AUTO) 2.1 10^3/uL (0.5-4.7); ABSOLUTE MONOCYTES (AUTO) 1.1 10^3/uL (0.1-1.4); ABSOLUTE NEUT (AUTO) 8.4 10^3/uL (1.7-8.2); BASOPHILS % (AUTO) 0.9 % (0-2); EOSINOPHILS % (AUTO) 1.4 % (0-6); HEMATOCRIT 37.4 % (37.9-51.0); HEMOGLOBIN 12.6 g/dL (13.5-17.0); LYMPHOCYTES % (AUTO) 17.7 % (13-45); MEAN CORPUSCULAR HEMOGLOBIN 31.8 pg (27.0-33.4); MEAN CORPUSCULAR HGB CONC 33.7 g/dL (32.0-36.0); MEAN CORPUSCULAR VOLUME 94 fl (80-97); PLATELET COUNT 441 10^3/uL (150-450); RED BLOOD COUNT 3.97 10^6/uL (4.35-5.55); RED CELL DISTRIBUTION WIDTH 15.5 % (11.5-14.0); TOTAL CELLS COUNTED % (AUTO) 100 %; WHITE BLOOD COUNT 11.9 10^3/uL (4.0-10.5)
[2019-05-24 17:51] VITALS: BP 125/71
== END 2019-05-24 17:51 | disposition home or self-care (01) ==
LOC: ER 10:48
DX: S30.1XXA Contusion of abdominal wall, initial encounter (principal); X58.XXXA Exposure to other specified factors, initial encounter; R10.31 Right lower quadrant pain; R10.813 Right lower quadrant abdominal tenderness; R05 Cough; I10 Essential (primary) hypertension; J44.9 Chronic obstructive pulmonary disease, unspecified; Z87.891 Personal history of nicotine dependence
CPT/HCPCS: 96376; 99284; 96374; 36415; 83690; 85025; 85610; 85730; 80053; 81001; 71045; 74177; J3010